=== PATIENT | male | born 1955 | race Caucasian/White ===

== ENCOUNTER → 2021-08-21 | Day surgery (SDC) | payer OTHER ==
[~2021-08-21] VITALS: Ht 182.9 cm; Wt 98.9 kg
[~2021-08-21] MED LIST: APPLE CIDER VI1 EACH PO; ASPIRIN EC81 MG PO; CINNAMON500 MG PO; FLUOXETINE HCL10 MG PO; GLIMEPIRIDE4 MG PO; JANUMET 50-1,01 EACH PO; LANTUS **100 UNITS/ SC; LISINOPRIL40 MG PO; LOVAZA1 GM PO; NIACIN500 M1 PO; NIACIN500 M3 PO; OMEPRAZOLE40 MG PO; PRAVASTATIN SOD40 MG PO; TRULICITY1.5 MG/0.5 SC
== END | disposition home or self-care (01) ==
LOC: FAS 09:40
DX: K29.50 Unspecified chronic gastritis without bleeding (principal); I10 Essential (primary) hypertension; E11.9 Type 2 diabetes mellitus without complications; E78.00 Pure hypercholesterolemia, unspecified; E07.9 Disorder of thyroid, unspecified; K21.9 Gastro-esophageal reflux disease without esophagitis; E78.5 Hyperlipidemia, unspecified; F17.210 Nicotine dependence, cigarettes, uncomplicated; F41.9 Anxiety disorder, unspecified; F32.A Depression, unspecified; Z79.82 Long term (current) use of aspirin; Z79.4 Long term (current) use of insulin; Z79.899 Other long term (current) drug therapy; Z72.89 Other problems related to lifestyle
CPT/HCPCS: 82962; J2250; J2704; J7120